=== PATIENT | female | born 1985 | race African-American/Black ===

== ENCOUNTER 2019-10-12 10:26 | Emergency (ER) | payer SELFPAY ==
[2019-10-12] MEDS ORDERED: TESSALON PERLE100 MG PO (12:21)
[2019-10-12] MEDS ORDERED: ZPAK PO (12:21)
[2019-10-12 12:45] VITALS: BP 146/94
== END 2019-10-12 12:45 | disposition home or self-care (01) | DRG 203 ==
LOC: ED 10:26
DX: J40 Bronchitis, not specified as acute or chronic (principal); I10 Essential (primary) hypertension; F17.210 Nicotine dependence, cigarettes, uncomplicated